=== PATIENT | male | born 1990 | race African-American/Black ===

== ENCOUNTER 2019-01-15 11:06 | Emergency (ER) | payer SELFPAY ==
[2019-01-15] MEDS ORDERED: Sulfameth/Trimethoprim DS 800-160mg TAB ONE (11:40)
[2019-01-15] MEDS ORDERED: Acetaminophen 500 MG TAB ONE (11:40)
[2019-01-15] MEDS ORDERED: Lidocaine 1% (PF) 30 ML VIAL ONE (11:53)
== END 2019-01-15 12:23 | disposition home or self-care (01) ==
LOC: ERS 11:06
DX: K61.0 Anal abscess (principal); F17.210 Nicotine dependence, cigarettes, uncomplicated
CPT/HCPCS: 46050; 87070; 87205; J2001

== ENCOUNTER 2019-01-17 21:53 | Emergency (ER) | payer SELFPAY | END 2019-01-17 22:22 | disposition home or self-care (01) | LOC: ERS 21:53 | DX: Z48.817 Encounter for surgical aftercare following surgery on the skin and subcutaneous tissue (principal); F17.210 Nicotine dependence, cigarettes, uncomplicated | CPT/HCPCS: 99282 ==